=== PATIENT | male | born 1930 | race Caucasian/White ===

== ENCOUNTER 2017-01-13 12:46 | Observation (INO) | payer MEDICARE, OTHER ==
[~2017-01-13] VITALS: Ht 180.3 cm; Wt 72.8 kg
--- NOTE | 2017-01-13 12:44 | ED.REPORT ---
HPI-Syncope Date of Service Jan 13, 2017 ED Provider: Juan Alberto Copeland MD The pt is an 86 y/o male w/ a hx of a CAD, A-fib anticoagulated on warfarin, and bradycardia presenting to the ED via EMS due to syncope onset just prior to arrival. The pt was finishing lunch and lost consciousness while sitting in his car and was found by his shortly after. EMS arrived and en route the pt's episodes of bradycardia increased in duration and he also had another episode of syncope causing EMS to give him .5 atropine and 4 mg of zofran. They report him complaining of "lightness", and urinary incontinence during the first episode of syncope but denies the pt experiencing nausea, SOB, or chest pain. In the ED The pt reports feeling better now and is able to breathe w/ no pain or discomfort. Patient denies chest pain. He describes feeling weak and being unable to lift his arms up. He reports not having any recent episodes of syncope. He knows his birthday but does not know the date. Nursing Notes Stated Complaint: SYNCOPE Nursing Notes Reviewed: Yes (Auramist not reconciled, on warfarin) Allergies: Coded Allergies: clopidogrel (Verified Allergy, Unknown, 05/22/16) Scheduled Aspirin (Aspirin) 81 Mg Tablet 81 MG PO QPM Carvedilol (Carvedilol) 6.25 Mg Tablet 3.125 MG PO BID Cholecalciferol (Vitamin D3) (Vitamin D3) 2,000 Unit Tablet 2,000 UNIT PO DAILY Isosorbide MN ER (Isosorbide MN ER) 30 Mg Tab.er.24h 30 MG PO QAM Simvastatin (Simvastatin) 40 Mg Tablet 40 MG PO QPM Spironolactone (Spironolactone) 25 Mg Tablet 25 MG PO QAM Torsemide (Torsemide) 20 Mg Tablet 20 MG PO DAILY Warfarin Sodium (Warfarin Sodium) 3 Mg Tablet 6 MG PO ,,,,Weber Warfarin Sodium (Warfarin Sodium) 3 Mg Tablet 9 MG PO Saturday and Saturday General Time Seen by Provider: 12:45 Chief Complaint Lost consciousness Hx Obtained From: Patient, EMS Arrived By: Ambulance Onset Occurred: Just prior to arrival Symptom Duration: Since onset Recent Healthcare: No recent doctor visit, No recent hospitalization Similar Sx Previous: Yes Past Medical History Past Medical History Notes: PCP Dr.Judy Dumont [phone] Neurologist: Dr. 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 Vitamin D3 2000 units Isosorbide mononitrate extended release 30 mg daily Spironolactone 25 mg in a.m. Torsemide 20 mg in a.m. Saturday A stool softener as needed Aspirin 81 mg in the evening Simvastatin 40 mg in the evening Warfarin 6 mg on Wednesdays and Saturday, 9 mg on Saturday and Saturday [id number] mg Past Medical History CAD A-fib on warfarin Alzheimer's Reports: Coronary artery disease Past Surgical History Cardiac stents (2010) CABG 9 multivessel in 1992, redo in 2000) Prostatectomy Reports: Cataract surgery, Tonsillectomy Smoking History Never Smoker Social History Alcohol Use: Denies alcohol use Drug Use: Denies drug use Ambulatory Status Independent Review of Systems Review of Systems Note: Sensation of "lightness" Constitutional: Denies: Chills, Fever Respiratory: Denies: Shortness of breath Cardiovascular: Denies: Chest pain GI: Denies: Nausea Neurologic: Reports: Weakness (Upper extremities ) Complete sys rev & neg: except as marked. Additional Review of Systems Male: Reports Incontinence (Urinary ) Physical Exam Initial Vital Signs Vital Signs (First) Date Time Temp Pulse Resp B/P Pulse Ox O2 Delivery O2 Flow Rate FiO2 01/13/17 13:05 36.8 64 15 116/83 97 Room Air Initial VS: Reviewed, Vital signs abnormal (Severe bradycardias for EMS) General/Constitutional: Awake, Alert, No acute distress Demented Respiratory / Chest: Atraumatic, Breath sounds NL, Breath sounds = bilat, No respiratory distress, No rales, No rhonchi, No wheezing Cardiovascular: Heart rate NL, No gallop, No murmurs, No rubs Heart Rate / Rhythm: Positive: Irreg irregular rhythm Lower Ext Edema: Positive: Bilateral 1+ Lower Extremity / Pelvis / MS: Neurologic intact, Vascular intact Neurologic: Speech NL, No motor deficits, No sensory deficits Head / Eyes: Atraumatic, Normocephalic ENT: Atraumatic, Airway patent Neck: Atraumatic, Supple, Full range of motion Skin: Color NL, Warm, Dry Psychiatric: Mood NL Confused due to alzheimers but is baseline according to Interpretation & Diagnostics Lab Results Interpretation Result Diagram: 01/13/17 1439 01/13/17 1439 Test 01/13/17 14:39 White Blood Count 5.3th/mm3 (3.8-10.1) Red Blood Count 4.07mil/mm3 (4.40-5.80) Hemoglobin 13.3g/dL (13.8-17.2) Hematocrit 39.3% (41.0-50.0) Mean Corpuscular Volume 96.6fL (81-100) Mean Corpuscular Hemoglobin 32.7pg (27.0-35.0) Mean Corpuscular Hemoglobin Concent 33.8% (32.0-37.0) Red Cell Distribution Width 14.5% (12.3-15.4) Platelet Count 96bil/L (150-400) Neutrophils (%) (Auto) 76.7% (40-74) Lymphocytes (%) (Auto) 12.1% (14-46) Monocytes (%) (Auto) 10.0% (4-12) Eosinophils (%) (Auto) 0.8% (0-5) Basophils (%) (Auto) 0.4% (0-3) Prothrombin Time 22.9sec (8.1-12.5) Prothromb Time International Ratio 2.11ratio Sodium Level 128mEq/L (134-144) Potassium Level 5.0mEq/L (3.5-5.2) Chloride Level 96mEq/L (97-108) Carbon Dioxide Level 21mmol/L (18-29) Blood Urea Nitrogen 18mg/dL (8-27) Creatinine 0.70mg/dL (0.76-1.27) Estimat Glomerular Filtration Rate 113mL/min (>59) Glucose Level 127mg/dL (60-99) Calcium Level 8.6mg/dL (8.5-10.1) Magnesium Level 2.2mg/dL (1.6-2.6) Total Bilirubin 0.7mg/dL (0.0-1.2) Aspartate Amino Transf (AST/SGOT) 35U/L (0-50) Alanine Aminotransferase (ALT/SGPT) 24U/L (0-44) Alkaline Phosphatase 122U/L (25-160) Troponin T < 0.010ug/L (0.0-0.011) Total Protein 6.5g/dL (6.4-8.4) Albumin 4.0g/dL (3.4-5.0) Hold Diamond Top Tube Received (Received) Lab Results Interpretation: CBC normal except for mild thrombocytopenia INR therapeutic CMP normal Troponin negative ECG Interpretation ECG Interpretation: Prehospital EKG Includes a prolonged rhythm strip with what appears to be an agonal idioventricular rhythm with a rate of 21 for a prolonged period, prior to returning to his rate controlled atrial fibrillation Time: 12:48 Interpreted by: ED physician ECG Interpretation: EKG demonstrates a rate controlled atrial fibrillation at a rate of 75, there is a right bundle branch block, no acute ischemic changes are evident, no interval change compared with prior EKG 05/22/2016 is eveident Time: 12:51 Interpreted by: ED physician X-Ray Chest Interpretation Chest Xray Interpretation: IMPRESSION: Cardiomegaly with increased pulmonary vascularity suggestive of edema. Small areas of coarsened opacities within the bases may be customer response representative of atelectasis or focal edema. Dictated by: Jes Reed M.D. on 01/13/2017 at 13:25 Approved by: Jes Reed M.D. on 01/13/2017 at 13:26 View: Portable, 1 view Interpretation / Wet Read by: Interpret - Radiologist Re-Eval/Medical Decision Med Decision/Clinical Course This is an 86-year-old male Alzheimer's who presents after a witnessed syncope with . She reports that one second he was talking and moving slow, they got into a car, and any subsequent pass out and was out for about 5 minutes. He then recovered and was found to be in his chronic atrial fibrillation by EMS when they first arrived, but during transport had a second episode of syncope with a idioventricular rhythm at a rate of 21, the patient was given atropine 0.5 mg and return to rate controlled atrial fibrillation. This is amnestic to these events and cannot give much additional history. He has moderate confusion but is at baseline according to the when he returns. 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 Additionally patient had a recent syncopal episode around [facility] for which he was seen at [facility]. Patient is on anticoagulation, and is also on carvedilol, although albeit at a low dose. This poin the patient has had multiple episodes of syncope, had a marked dysrhythmic event today contributing to syncope twice, so admission is indicated. The case discussed with Dr. Luna who came and reviewed his rhythm strips. Plan is to admit, hold his Coreg, and cardiology service will see him tomorrow to discuss options-. The challenge in this case is the situation of Alzheimer's , and pacemaker candidacy. This is discussed with the hospitalist. Source of Hx: Old records, EMS Consultation #1: Referral / Consult Name: Willie Luna MD Consulted With: Cardiology Call Returned at: 12:56 Note: Discussed pt plan. He will see the pt. Consultation #2: Referral / Consult Name: Alex Lilly MD Consulted With: Hospitalist Call Returned at: 15:07 Substation Operator Apprentice: Accepts admit Differential Diagnosis: Positive: Arrhythmia, Dysrhythmia, Negative: Abdominal aortic aneurysm, Acute coronary syndrome, Anemia, Chest pain, acute, Hypoglycemia, Malingering, Pneumothorax, Prolonged QT syndrome, Subarachnoid hemorrhage, Vasovagal syncope Counseled Regarding: Diagnosis, Lab results, Need for follow-up, Need for admission Discharge & Departure Impression: Primary Impression: Syncope and collapse Additional Impressions: Dysrhythmia, cardiac Arrhythmia type: other cardiac arrhythmia Qualified Code: I49.8 - Other specified cardiac arrhythmias Anticoagulated with warfarin Disposition: ADMITTED TO HOSPITAL Discharge Condition All VS Reviewed: Yes Condition: Stable Referrals: [facility] (PCP) Scribe Attestation Portions of this note were transcribed by Harrison Dominguez. I, Dr. Copeland personally performed the history, physical exam and medical decision- making; I reviewed and confirmed the accuracy of the information in the transcribed note. Signed by: Harrison Dominguez, Ravinder, 01/13/17 and 1316. copies to: [facility] Juan Alberto Copeland MD Jan 13, 2017 12:44 Harrison Woo Jan 13, 2017 12:56 WES DOMINGUEZ Jan 13, 2017 14:01
[~2017-01-13 12:46] MED LIST: ASPI-973 PO; CARV6.252 PO; CHOL200025 PO; ISOS30TA4 PO; SIMV40TA5 PO; SPIR25TA3 PO; TORS20TA3 PO; WARF3TAB7 PO
[2017-01-13 13:05] VITALS: BP 116/83; PULSE 64; RESP 15; O2SAT 97
--- NOTE | 2017-01-13 13:27 | DRSVH ---
PROCEDURE: X-RAY CHEST ONE VIEW, PORTABLE ([id number]) INDICATIONS: Syncope TECHNIQUE: One view of the chest was acquired. COMPARISON: [facility], CR, XR CHEST 1VW (PORTABLE), 05/22/2016, 14:01. FINDINGS: Surgical changes and devices: Sternal wires consistent with previous bypass procedure are present. Lungs and pleura: Diffuse increased pulmonary vascularity is present with coarsened bibasilar interst itial opacities. Mediastinum: Mediastinal contours appear normal. Heart size is mildly enlarged. Bones and chest wall: No suspicious bony lesions. Overlying soft tissues appear unremarkable. IMPRESSION: Cardiomegaly with increased pulmonary vascularity suggestive of edema. Small areas of coa rsened opacities within the bases may be underwriting service representative of atelectasis or focal edema. Dictated by: Jes Reed M.D. on 01/13/2017 at 13:25 Approved by: Jes Reed M.D. on 01/13/2017 at 13:26
[2017-01-13 14:02] VITALS: BP 130/85; PULSE 69; RESP 16; O2SAT 98
[2017-01-13 14:56] LABS: BASOPHILS % (AUTO) 0.4 % (0-3); EOSINOPHILS % (AUTO) 0.8 % (0-5)
[2017-01-13 15:00] LABS: Mean Corpuscular Hemoglobin 32.7 pg (27.0-35.0); Mean Corpuscular Volume 96.6 fL (81-100); NEUTROPHILS % (AUTO) 76.7 % (40-74); Platelet Count 96 bil/L (150-400)
[2017-01-13 15:05] LABS: INR 2.11 ratio
[2017-01-13] MEDS: 0.9% Sodium Chloride 1,000 ML IV SCH (15:07)
[2017-01-13] MEDS ORDERED: Ondansetron 2 mg/mL 2 mL Inj IVPUSH PRN (15:10)
[2017-01-13] MEDS ORDERED: Polyethylene Glycol (PEG) 17 Gm Powder PO PRN (15:10)
[2017-01-13 15:13] LABS: Magnesium 2.2 mg/dL (1.6-2.6)
[2017-01-13 15:18] LABS: TROPONIN T < 0.010 ug/L (0.0-0.011)
[2017-01-13] MEDS ORDERED: ASPI81TA3 PO (15:48)
[2017-01-13] MEDS ORDERED: DOCU240C41 PO (15:48)
[2017-01-13] MEDS ORDERED: MEMA10TA20 PO (15:48)
[2017-01-13 16:57] VITALS: PULSE 70
--- NOTE | 2017-01-13 17:15 | NUR ---
Admit to [facility] Pt admitted to [facility] room 2009. Transferred by jeffery, Pt was assisted by RN, SERVICE SUPERVISOR and alarm field technician from [facility] to bed using bed lift sheets. Pt vitals all within normal limits. Pt has hx of controlled afib and a recent hx of falls with syncope. Pt has Alzheimer's and has difficulty finding words to make his needs clear. Pt's at bedside.
[2017-01-13 17:18] VITALS: BP 124/84; PULSE 65; RESP 16; O2SAT 95
--- NOTE | 2017-01-13 17:21 | PCM.HPMED ---
Subjective Date of Service Jan 13, 2017 Primary Provider: Admitting Physician: Alex Lilly MD Primary Care Physician: Nopcp Attending Physician: Alex Lilly MD Admit Status: From the Emergency Department, 23-Hour Observation, Admit to [facility], [facility] Telemetry Chief Complaint: Syncope History of Present Illness: This is a 86-year-old woman with a history of syncope about 6 weeks ago. At that time his found him lying on the floor lifted his legs called 911 and after about a 15 minute delay he was found to have abnormal rhythm was brought [facility] and diagnosed with a concussion. The patient has an extensive past medical history of atrial fibrillation which is chronic on Coumadin as well as CAD with coronary artery bypass grafting as well as probable stenting. He sees Dr. Azul cardiology following him. Today the patient had breakfast out with his and then one getting tachycardic drive passed out in the car. 911 was called. His total time down was about 5 minutes. A friend tried to locate a pulse but could not. He was then confused. EMS arrived and decided to transport him. They diverted from [facility] to [facility] when the patient had recurrent bradycardia as well as feeling lightheaded and was given atropine 0.5 mg. The patient was noted to be in a atrial fibrillation rhythm. The atropine apparently did not help. The patient does take carvedilol 3.125 mg twice a day but no other rate blocking drugs. He does have a prior history of admission for bradycardia felt to be associated with his dementia medication. The patient really provides lower no history he is severely demented. He does however deny any pain. Review of Systems: Is not really obtainable from the patient's although his denies recent URI symptoms including rhinorrhea, sore throat fevers or chills. No recent diarrhea. ROS not obtainable more specifically because of his cognitive impairment. Allergies Coded Allergies: donepezil (Verified Allergy, Mild, eent, 01/13/17) galantamine (Verified Allergy, Mild, chest pain, 01/13/17) clopidogrel (Verified Allergy, Unknown, 05/22/16) Home Medications Aspirin (Aspirin) 81 Mg Tablet 81 MG PO QPM Carvedilol (Carvedilol) 6.25 Mg Tablet 3.125 MG PO BID Cholecalciferol (Vitamin D3) (Vitamin D3) 2,000 Unit Tablet 2,000 UNIT PO DAILY Isosorbide MN ER (Isosorbide MN ER) 30 Mg Tab.er.24h 30 MG PO QAM Simvastatin (Simvastatin) 40 Mg Tablet 40 MG PO QPM Spironolactone (Spironolactone) 25 Mg Tablet 25 MG PO QAM Torsemide (Torsemide) 20 Mg Tablet 20 MG PO DAILY Warfarin Sodium (Warfarin Sodium) 3 Mg Tablet 6 MG PO ,,,Sa,Weber Warfarin Sodium (Warfarin Sodium) 3 Mg Tablet 9 MG PO Saturday and Saturday PMH 1. Dementia 2. Chronic atrial fibrillation 3. Chronic anticoagulation 4. CAD history bypass grafting 5. Essential hypertension. 6. Prostate cancer history of prostatectomy Surgical History 1. Coronary artery bypass grafting. 2. Prostatectomy. Family History Positive for CAD with a brother with myocardial infarction. Social History Occupation: retired Hx Alcohol Use: Yes Hx Substance Use: No Smoking Status: Never Smoker Living Arrangement: with Family Exam Vital Signs Vital Sign - Last Date Time Temp Pulse Resp B/P Pulse Ox O2 Delivery O2 Flow Rate FiO2 01/13/17 16:57 70 01/13/17 15:39 16 130/85 98 Room Air 01/13/17 13:05 36.8 Exam Oriented to self. No distress. Fluent speech. Normal affect. Not very interactive. Normal skull. Normal nose and ears. Anicteric sclera, symmetric pupils Oropharynx is unremarkable, no facial droop. Neck is supple, normal thyroid. No adenopathy. Lungs are clear, normal effort rate. Heart is irregular without murmur gallop or rub. Abdomen soft, nondistended or tender. Extremities are free of pedal edema. Good radial and pedal pulses. Skin is free of rash, lesions. No petechiae or ecchymosis. Joints are grossly normal. Cranial nerves are grossly normal. Motor strength is normal in all extremities. Normal muscular tone. Lab and Diagnostics Result Diagram: 01/13/17 1439 01/13/17 1439 X-Rays, CTs and MRIs Cardiomegaly with possible mild pulmonary edema. 12-lead ECG Right controlled A. fib, right bundle Assessment & Plan 1. Recurrent syncope associated with a very bradycardic rhythm, atrial fibrillation. Not SALVATORE but witnessed and EMS transport. The plan is to hold carvedilol and follow his rhythm. If this is recurrent issue in spite of a beta garry washout the patient may require a pacemaker. 2. Dementia, POA. Follow clinically 3. CAD, POA. Clinically stable follow and use all chronic medications other than rate blocking medications 4. Hypertension, POA. Will again resume all normal medications with the exception are carvedilol. Patient is full resuscitation and intubation this was confirmed with the patient 's today. Patient is admitted observation status, estimate one night length of stay. Pain Evaluation: Adequate Pain Control Resuscitation Status: CPR: Attempt Resuscitation Time spent 45 minutes Alex Lilly MD Jan 13, 2017 17:21
[2017-01-13 20:00] VITALS: PULSE 72
--- NOTE | 2017-01-13 21:08 | NUR ---
CANDI explained to pt and his who is at bedside. CANDI signed by . Copy of CANDI and Medicare self administered medication information given to .
[2017-01-13 21:51] VITALS: BP 141/88; PULSE 75; RESP 16; O2SAT 99
[2017-01-14 00:18] VITALS: BP 142/92; PULSE 87; RESP 22; O2SAT 98
[2017-01-14] MEDS: Heparin 5,000 Unit/mL Inj SUBQ SCH ×2 (00:25→08:08)
[2017-01-14] MEDS: 0.9% Sodium Chloride 1,000 ML IV SCH (00:26)
[2017-01-14 03:34] LABS: BASOPHILS % (AUTO) 0.6 % (0-3); EOSINOPHILS % (AUTO) 1.6 % (0-5); MONOCYTES % (AUTO) 13.6 % (4-12); Mean Corpuscular Hemoglobin 33.2 pg (27.0-35.0); Mean Corpuscular Volume 97.5 fL (81-100); NEUTROPHILS % (AUTO) 60.5 % (40-74); Platelet Count 109 bil/L (150-400)
[2017-01-14 03:52] LABS: INR 1.97 ratio
[2017-01-14 03:59] VITALS: BP 136/77; PULSE 69; RESP 16; O2SAT 97
--- NOTE | 2017-01-14 07:30 | NUR ---
Agitation/Tele At start of shift pt appeared anxious/agitated stating he "needed to go home now" and stated this multiple times. When attempting to orient pt to situation he became more agitated. was called to see if any family tar heater operator available, stated she would stay the night with him and after pt was told this he appeared relaxed. Pt arrived later in night and pt had a restful night, only getting up to use BR. Tele Afib 70s, looked to be as low as 50s when pt asleep. Other vitals stable.
[2017-01-14 07:50] VITALS: BP 134/82; PULSE 62; RESP 16; O2SAT 97
--- NOTE | 2017-01-14 08:32 | PCM.DIMED ---
Discharge Instructions Date of Service January 14, 2017 Dates of Hospitalization Jan 13, 2017 at 15:38 Discharge Diagnosis Discharge Diagnosis 1. Recurrent syncope secondary to carvedilol. 2. Chronic atrial fibrillation 2. Dementia. 3. CAD. 4. Hypertension. 5. History of recent falls on Coumadin, family reluctant to stop until following up with cardiology. Diet Heart Healthy Activity No restrictions Call your provider Shortness of breath, Chest pain, Other (fainting episodes) Patient Instructions Follow-up Provider: Diomedes Hernandez MD Follow-up with PCP in: 2 weeks Alex Lilly MD January 14, 2017 08:32
--- NOTE | 2017-01-14 08:34 | PCM.DC.MED ---
Discharge Summary Date of Service January 14, 2017 Dates of Hospitalization Date of Hospital Admission Jan 13, 2017 at 15:38 Date of Discharge: January 14, 2017 Providers: Admitting Physician: Alex Lilly MD Primary Care Physician: Nopyusef Attending Physician: Alex Lilly MD Diagnosis at Time of Discharge Diagnosis at Time of Discharge 1. Recurrent syncope secondary to carvedilol. 2. Chronic atrial fibrillation 2. Dementia. 3. CAD. 4. Hypertension. 5. History of recent falls on Coumadin, family reluctant to stop until following up with cardiology. Consultations None Procedures XRay, CTs & MRIs Cardiomegaly with possible mild pulmonary edema. ECG 12 Lead Right controlled A. fib, right bundle Invasive Procedures None Brief History This is a 86-year-old woman with a history of syncope about 6 weeks ago. At that time his found him lying on the floor lifted his legs called 911 and after about a 15 minute delay he was found to have abnormal rhythm was brought [facility] and diagnosed with a concussion. The patient has an extensive past medical history of atrial fibrillation which is chronic on Coumadin as well as CAD with coronary artery bypass grafting as well as probable stenting. He sees Dr. Azul cardiology following him. Today the patient had breakfast out with his and then one getting tachycardic drive passed out in the car. 911 was called. His total time down was about 5 minutes. A friend tried to locate a pulse but could not. He was then confused. EMS arrived and decided to transport him. They diverted from [facility] to [facility] when the patient had recurrent bradycardia as well as feeling lightheaded and was given atropine 0.5 mg. The patient was noted to be in a atrial fibrillation rhythm. The atropine apparently did not help. The patient does take carvedilol 3.125 mg twice a day but no other rate blocking drugs. He does have a prior history of admission for bradycardia felt to be associated with his dementia medication. The patient really provides lower no history he is severely demented. He does however deny any pain. Hospital Course 1. Recurrent syncope associated with a very bradycardic rhythm, atrial fibrillation. Not SALVATORE but witnessed and EMS transport. The plan is to hold carvedilol and follow his rhythm. If this is recurrent issue in spite of a beta garry washout the patient may require a pacemaker. 2. Dementia, POA. Follow clinically 3. CAD, POA. Clinically stable follow and use all chronic medications other than rate blocking medications 4. Hypertension, POA. Will again resume all normal medications with the exception are carvedilol. Patient is full resuscitation and intubation this was confirmed with the patient 's today. Patient is admitted observation status, estimate one night length of stay. Exam Vital Signs (Last) Date Time Temp Pulse Resp B/P Pulse Ox O2 Delivery O2 Flow Rate FiO2 01/14/17 07:50 36.9 62 16 134/82 97 01/14/17 03:59 Room Air Exam Patient was seen and examined on the day of discharge Test 01/13/17 14:39 01/14/17 03:25 Magnesium Level 2.2mg/dL (1.6-2.6) Troponin T < 0.010ug/L (0.0-0.011) Hold Diamond Top Tube Received (Received) White Blood Count 5.1th/mm3 (3.8-10.1) Red Blood Count 3.94mil/mm3 (4.40-5.80) Hemoglobin 13.1g/dL (13.8-17.2) Hematocrit 38.4% (41.0-50.0) Mean Corpuscular Volume 97.5fL (81-100) Mean Corpuscular Hemoglobin 33.2pg (27.0-35.0) Mean Corpuscular Hemoglobin Concent 34.1% (32.0-37.0) Red Cell Distribution Width 13.9% (12.3-15.4) Platelet Count 109bil/L (150-400) Neutrophils (%) (Auto) 60.5% (40-74) Lymphocytes (%) (Auto) 23.5% (14-46) Monocytes (%) (Auto) 13.6% (4-12) Eosinophils (%) (Auto) 1.6% (0-5) Basophils (%) (Auto) 0.6% (0-3) Prothrombin Time 21.4sec (8.1-12.5) Prothromb Time International Ratio 1.97ratio Sodium Level 132mEq/L (134-144) Potassium Level 4.6mEq/L (3.5-5.2) Chloride Level 98mEq/L (97-108) Carbon Dioxide Level 20mmol/L (18-29) Blood Urea Nitrogen 15mg/dL (8-27) Creatinine 0.61mg/dL (0.76-1.27) Estimat Glomerular Filtration Rate 133mL/min (>59) Glucose Level 102mg/dL (60-99) Calcium Level 8.3mg/dL (8.5-10.1) Total Bilirubin 0.8mg/dL (0.0-1.2) Aspartate Amino Transf (AST/SGOT) 31U/L (0-50) Alanine Aminotransferase (ALT/SGPT) 22U/L (0-44) Alkaline Phosphatase 119U/L (25-160) Total Protein 5.9g/dL (6.4-8.4) Albumin 3.7g/dL (3.4-5.0) Discharge Medications Discharge Medications Aspirin Chew (Aspirin Chew) 81 Mg Chew 81 MG PO DAILY (Reported) Cholecalciferol (Vitamin D3) (Vitamin D3) 2,000 Unit Tablet 2,000 UNIT PO DAILY (Reported) Isosorbide MN ER (Isosorbide MN ER) 30 Mg Tab.er.24h 30 MG PO QAM (Reported) Memantine HCl (Memantine HCl) 10 Mg Tablet 10 MG PO BID (Reported) Simvastatin (Simvastatin) 40 Mg Tablet 40 MG PO QPM (Reported) Spironolactone (Spironolactone) 25 Mg Tablet 25 MG PO QAM (Reported) Torsemide (Torsemide) 20 Mg Tablet 20 MG PO DAILY (Reported) Warfarin Sodium (Warfarin Sodium) 3 Mg Tablet 6 MG PO ,,,Sa,Weber (Reported) Warfarin Sodium (Warfarin Sodium) 3 Mg Tablet 9 MG PO Saturday and Saturday ( Reported) As needed Docusate Calcium (Stool Softener) 240 Mg Capsule 240 MG PO PRN For Constipation (Reported) Followup Plan Disposition: Home Discharge Diet: Heart Healthy Discharge Activity: No restrictions Follow-up Provider: Diomedes Hernandez MD Follow-up with PCP in: 2 weeks Time spent 40 minutes Alex Lilly MD January 14, 2017 08:34
--- NOTE | 2017-01-14 09:02 | NUR ---
Discharge Patient heart rate stable overnight. Afib with rate in the 60s this AM. VSS. Patient alert and oriented to self and place. DC'd carvedilol and patient to follow up with reproducer. Patient teaching on monitoring HR done with patient and . IV DC'd intact. Patient ambulated off unit with all personal belongings accompanied by his and transported home via personal vehicle.
--- NOTE | 2017-01-14 12:20 | NUR ---
Admission Interventions Admission interventions screens completed post discharge by this RN. Patient agitated and anxious to leave, uncooperative with full admission assessment. Discharged home around 0900. Filled in remaining information using hospitalist progress note and information from previous visit.
== END 2017-01-14 08:50 | disposition home or self-care (01) ==
LOC: SED 12:46 → PCC 15:38
PROVIDERS: ADMIT Hospitalist; ATTEND Hospitalist
DX: R55 Syncope and collapse (principal); T44.7X5A Adverse effect of beta-adrenoreceptor antagonists, initial encounter; I48.2 Chronic atrial fibrillation; R00.1 Bradycardia, unspecified; G30.9 Alzheimer's disease, unspecified; F02.80 Dementia in other diseases classified elsewhere, unspecified severity, without behavioral disturbance, psychotic disturbance, mood disturbance, and anxiety; I25.10 Atherosclerotic heart disease of native coronary artery without angina pectoris; I10 Essential (primary) hypertension; Z91.81 History of falling; Z85.46 Personal history of malignant neoplasm of prostate; Z95.1 Presence of aortocoronary bypass graft; Z95.5 Presence of coronary angioplasty implant and graft; Z79.01 Long term (current) use of anticoagulants; Z79.82 Long term (current) use of aspirin
CPT/HCPCS: 36415; 71010; 80053; 83735; 84484; 85025; 85610; 93005; 99285; G0378; J1644